=== PATIENT | female | born 1970 | race Caucasian/White ===

== ENCOUNTER → 2017-06-16 | Outpatient (CLI) | payer BC | LOC: MC.RAD 08:40 | DX: Z12.31 Encounter for screening mammogram for malignant neoplasm of breast (principal); Z98.82 Breast implant status ==

== ENCOUNTER → 2018-06-17 | Outpatient (CLI) | payer BC | LOC: MC.RAD 09:54 | DX: Z12.31 Encounter for screening mammogram for malignant neoplasm of breast (principal); Z98.82 Breast implant status ==

== ENCOUNTER 2020-02-12 08:56 | Emergency (ER) | payer BC ==
[~2020-02-12] VITALS: Ht 165.1 cm; Wt 70.5 kg
[2020-02-12 09:04] VITALS: TEMP 97.6
[2020-02-12] MEDS ORDERED: VALTREX1 GM PO (09:41)
[2020-02-12] MEDS ORDERED: PERCOCET 325 MG1 TA2 PO (09:41)
[2020-02-12 09:49] VITALS: BP 148/81; PULSE 74
== END 2020-02-12 09:55 | disposition home or self-care (01) ==
LOC: COL.ER 08:56
DX: B02.9 Zoster without complications (principal); Z90.710 Acquired absence of both cervix and uterus; Z88.2 Allergy status to sulfonamides

== ENCOUNTER 2020-04-18 16:54 | Emergency (ER) | payer BC ==
[~2020-04-18] VITALS: Ht 165.1 cm; Wt 74.1 kg
[~2020-04-18 16:54] MED LIST: PERCOCET 325 MG1 TA2 PO; VALTREX1 GM PO
[2020-04-18 16:59] VITALS: BP 116/80; TEMP 97.8
[2020-04-18 17:50] VITALS: PULSE 78
== END 2020-04-18 17:52 | disposition home or self-care (01) ==
LOC: COL.ER 16:54
DX: L25.9 Unspecified contact dermatitis, unspecified cause (principal)
CPT/HCPCS: J1040

== ENCOUNTER → 2021-01-08 | Outpatient (CLI) | payer BC | LOC: MC.RAD 14:30 | DX: Z12.31 Encounter for screening mammogram for malignant neoplasm of breast (principal); Z98.82 Breast implant status ==